=== PATIENT | male | born 1995 | race African-American/Black ===

== ENCOUNTER 2023-04-19 01:52 | Emergency (ER) | payer SELFPAY ==
[2023-04-19 01:53] VITALS: BMI 19.0
[2023-04-19 01:59] VITALS: BP 111/79
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
[2023-04-19 09:20] VITALS: BP 123/93
== END 2023-04-19 09:49 | disposition home or self-care (01) ==
LOC: EMR 01:52
PROVIDERS: EMERGENCY PHYSICIAN Emergency Medicine
DX: F11.20 Opioid dependence, uncomplicated (principal); R03.0 Elevated blood-pressure reading, without diagnosis of hypertension
CPT/HCPCS: 99283